=== PATIENT | female | born 1965 | race Caucasian/White ===

== ENCOUNTER 2020-11-23 12:24 | Emergency (ER) | payer MEDICAID ==
[~2020-11-23] VITALS: Ht 167.6 cm; Wt 86.0 kg
[2020-11-23 12:33] VITALS: BP 131/80
== END 2020-11-23 13:39 | disposition home or self-care (01) ==
LOC: ER 12:24
DX: H11.32 Conjunctival hemorrhage, left eye (principal); I25.2 Old myocardial infarction; I10 Essential (primary) hypertension; Z98.890 Other specified postprocedural states; Z90.49 Acquired absence of other specified parts of digestive tract
CPT/HCPCS: 99281